=== PATIENT | male | born 2000 | race Caucasian/White ===

== ENCOUNTER 2024-12-21 14:57 | Emergency (ER) | payer OTHER ==
[~2024-12-21] VITALS: Ht 195.6 cm; Wt 137.6 kg
[2024-12-21 15:00] VITALS: BP 145/80; TEMP 96.9; O2SAT 98
[2024-12-21] MEDS: LIDOCAINE 1% MDV 20ML VIAL SC ONE (17:09)
[2024-12-21] MEDS ORDERED: DOXY-442 PO (17:32)
== END 2024-12-21 18:01 | disposition home or self-care (01) ==
LOC: M ED 14:57
DX: L05.91 Pilonidal cyst without abscess (principal)